=== PATIENT | male | born 1995 | race Caucasian/White ===

== ENCOUNTER 2024-10-27 11:35 | Day surgery (SDC) | payer SELFPAY ==
--- NOTE | 2024-10-26 16:09 | W.PREOPHP ---
Assessment and Plan Assessment and plan (1) Left inguinal hernia: Status: Acute Assessment and plan: We reviewed the plan for a open left inguinal hernia repair with mesh, and Collin had the chance to ask any other questions. There have been no other major changes, and we can proceed with left-sided open inguinal hernia repair with mesh as planned. History of Present Illness History of Present Illness Chief Complaint: left groin pain Narrative: Collin is here for a left inguinal hernia. Symptoms of it first were noticed in the spring of last year. He was doing some physical labor and he noticed a sensation of a pulled muscle in the left side of his groin. At first he did not think much of it, but the pain persisted for a few weeks, and not long thereafter he noticed a bulge in the area. The bulge tends to come and go. He denies any obstructive symptoms. He was actually seen in this office in April 2024 anticipating surgical repair, but due to some health insurance issues, they have had to reschedule. In the interim, there is not been much different in terms of his symptoms, although he does think that the hernia itself may be a little bit larger than before. PFSH All Active Problems Vapes nicotine containing substance (Acute) Left inguinal hernia (Acute) Medical History Exercise-induced asthma Surgical History Hx of wisdom tooth extraction Social History Smoking/Tobacco Use Status: Current every day Tobacco Type: e-cigarettes Smoking risk assessment performed?: Yes Alcohol Intake: never Drug use: Daily Substance use type: marijuana Details: vaping cannabis frequently, daily. Estimates about 5 joints worth a day. Housing: house Do you feel safe at home: Yes Do you feel safe in your relationship?: Yes Meds Allergies and Home Medications Allergies Allergy/AdvReac Type Severity Reaction Status Date / Time No Known Allergies Allergy Verified 10/23/24 14:51 Home Medications ?Medication ?Instructions ?Recorded ?Confirmed ?Type levalbuterol tartrate 45 2 puff inhalation Q4H PRN ##1 10/16/12 10/27/24 History mcg/actuation aerosol inhaler (Xopenex HFA) Exam Const General: cooperative, healthy appearing and not in acute distress Neck Neck: normal visual inspection, no lymphadenopathy and supple Thyroid: thyroid normal Resp Effort & Inspection: normal respiratory effort Auscultation: clear to auscultation bilaterally Cardio Jugular venous pressure: no JVD Rate: regular rate Rhythm: regular rhythm Heart Sounds: S1 normal and S2 normal GI Inspection: normal to inspection Palpation: soft, no guarding, hernia (Reducible left inguinal) and nontender Percussion: normal to percussion Auscultation: normal bowel sounds Neuro General: patient alert, patient awake and patient oriented x3 Psych Appearance: grossly normal
--- NOTE | 2024-10-26 16:28 | W.PM.OP ---
Operative Note Operative Note PRE-OP DIAGNOSIS: Left inguinal hernia POST-OP DIAGNOSIS: other PROCEDURE: Open left-sided inguinal hernia repair with mesh SURGEON: Noam Marquez VETERINARY BACTERIOLOGIST: Faye Rush ANESTHESIA TYPE: Local By Surgeon, General LMA/ETT and Other (Ultrasound guided left-sided inguinal tap block) Refer to Anesthesia Record ESTIMATED BLOOD LOSS: 25 PATHOLOGY: none sent COMPLICATIONS: None Patient was transported to: PACU Patient's condition: stable Implants: Bard PerFix light plug and patch Indications: Collin is a 29-year-old male with a painful left-sided inguinal hernia Findings: Left-sided indirect inguinal hernia Procedure Description: I met with Collin in the preoperative area, we discussed the plan for surgery. He did not have any new questions. He confirmed the left side was the correct side. We then moved back to the operating room, and he was assisted onto the OR table. Care was taken to ensure that he was padded and supported appropriately. General endotracheal anesthesia was initiated, and the left inguinal region was blocked by the anesthesia team. The surgical site was then prepped and draped in the usual fashion. I began by making an oblique incision over the left inguinal region. I dissected down through the skin to the deep fascia. Next, I incised the fascia along the length of the inguinal canal to the external ring. I then carefully identified the ilioinguinal nerve and sharply divided. Once this was complete, I bluntly dissected the shelving edge of the inguinal ligament down towards the pubic tubercle. Here, I encircled all cord structures with a Sha drain. Next, I began dissecting the specific cord structures. Great care was taken to spare the vas deferens and the blood supply to the testicle. Next, I isolated the hernia sac from the other inguinal structures. I reduced it back to its normal anatomic position. This was an indirect inguinal hernia that was easily reducible. I then used a large mesh plug to obliterate the defect at the internal ring. I fixed in place with interrupted Prolene stitches. Next, I buttressed the posterior floor of the inguinal canal with a large mesh patch. It was tailored to fit. I started by fixing it to the pubic tubercle. Next, I used Prolene sutures to affix it to the shelving edge of the inguinal ligament and the conjoined tendon. Laterally I tacked it to the internal oblique fascia and reconstructed an internal ring without any strain on the cord structures. Once this was complete, I irrigated the surgical field. It appeared hemostatic. I then closed the anterior portion of the fascia to reconstruct the front wall of the inguinal canal. I did this with interrupted Vicryl stitches. Once again, I irrigated the surgical field and inspected for hemostasis. Finally, I approximated the superficial fascia and the deep layers of the skin with absorbable suture. Skin was closed with running subcuticular stitches. Bandages were applied, the patient was awakened and transferred to the recovery unit. Date of Procedure: 10/27/24
--- NOTE | 2024-10-26 16:29 | W.PM.DSUDISC ---
Date of service: 10/27/24 Discharge Plan Disposition Patient Disposition: Home Condition: Good Discharge Details Reason For Visit: Left inguinal hernia repair Attending Provider: Noam Marquez Primary Care Provider: None,None Home Meds and New Rx's Prescriptions: New tramadol 50 mg tablet 50 mg PO Q8H PRNQty: 12 0RF Rx Instructions: Take 1 tablet by mouth up to every 8 hours if needed for more severe pain Continued levalbuterol tartrate [Xopenex HFA] 15 GM HFA aerosol inhaler 2 puff Inhalation Q4H PRN Qty: 1 Rx Instructions: always use with spacer Discharge Instructions Instructions: Groin Hernia Repair, Open Surgery Additional Instructions: Collin, it was very nice seeing you today, and I hope you make a quick and uneventful recovery from the operation. Things went very smoothly, we were able to easily identify the hernia, and reduce it back in place. I repaired the defect just like we spoke about beforehand using permanent mesh material that should provide a durable repair. Expect to get some bruising over the next few days. That is extremely common and nothing to worry about. You may also notice some increasing pain as some of the nerve block wears off. Alternating Tylenol and ibuprofen, and supplementing this with the prescription if needed should help with the transition. Try to get up and move around a little bit over the next few days. Avoid any heavy lifting, and when you are resting, try to keep your pelvis elevated to help reduce swelling. Ice packs are also very useful for this. If you need anything at all, please do not hesitate to call, otherwise we look forward to seeing you in the office on the . 1. Resume all of your regular medications. 2. Use ice packs over the incision as needed for pain and swelling 3. Alternate [id number] Tylenol and ibuprofen every 6 hours for the first 2 days, then use as needed. Use the prescription for [] if needed for more severe pain 4. Leave bandage in place for 24 hours, then remove. 5. Shower with warm soapy water. Pat dry. Use a bandaid if needed to protect your clothing. 6. No soaking or tub baths until I see you in the office. 7. No heavy lifting until I see you in the office. 8. Call the office (or go directly to the emergency room after hours) if you notice any of the following: Develop chills (warm to touch), or if you have a thermometer and your temperature is above 101 Difficulty breathing or difficultly swallowing Persistent vomiting Any bleeding ? exceeding one tablespoon 9. Call your physician if the site where your intravenous was started becomes red, swollen, painful, and warm to touch. Referrals: Noam Marquez MD [ [facility] STAFF PHYSICIAN] - (November 11 at 9:30 AM) Activity:: No heavy lifting Remove Dressings/Wound Care:: 24 hours Shower/Bathe:: 24 hours Diet:: As Tolerated Discharge Orders Discharge Orders: Discharge Order (Routine); Ordered 10/26/24 Ordered By: Noam Marquez DS: Diagnosis Discharge Diagnosis (1) Left inguinal hernia: Status: Acute Asessment and Plan: Postoperative outpatient follow-up
[2024-10-27] VITALS (32 sets, daily range): BP systolic 99–141; BP diastolic 42–99; PULSE 60–92; RESP 12–22; TEMP 36.3–36.8; O2SAT 96–99; BMI 26.4
[2024-10-27] MEDS: Lactated Ringers 1,000 ML 80 ML IV ×2 (12:10→14:40)
[2024-10-27] MEDS: Acetaminophen 500 MG TAB 1000 MG PO (12:10)
[2024-10-27] MEDS: Celecoxib 200 MG CAP PO (12:10)
[2024-10-27] MEDS: Gabapentin 300 MG CAP 600 MG PO (12:10)
[2024-10-27] MEDS: ceFAZolin 2 GM/50 ML BAG IVPB (12:10)
--- NOTE | 2024-10-27 12:22 | W.ANESPRE ---
General Info Date of Service Date Performed: 10/27/24 Height: 6 ft Weight: 88.6 kg Body Mass Index (BMI): 26.4 Surgical Procedure: Operation Date: 10/27/24 12:55 Proposed Procedure Side Surgeon p Herniorrhaphy Inguinal w/Mesh Left Noam Marquez MD Meds Allergies and Home Medications Allergies Allergy/AdvReac Type Severity Reaction Status Date / Time No Known Allergies Allergy Verified 10/23/24 14:51 Home Medication ?Medication ?Instructions ?Recorded levalbuterol tartrate 45 2 puff inhalation Q4H PRN ##1 10/16/12 mcg/actuation aerosol inhaler (Xopenex HFA) Current Visit Medications: Current Medications Generic Name Dose Route Start Last Admin Trade Name Freq PRN Reason Stop Dose Admin Acetaminophen 1,000 mg 10/27/24 06:00 10/27/24 12:10 Acetaminophen 500 Mg Tab PO 10/27/24 23:59 1,000 mg PREOP JAYJAY Administration Celecoxib 200 mg 10/27/24 06:00 10/27/24 12:10 Celecoxib 200 Mg Cap PO 10/27/24 23:59 200 mg PREOP JAYJAY Administration Gabapentin 600 mg 10/27/24 06:00 10/27/24 12:10 Gabapentin 300 Mg Cap PO 10/27/24 23:59 600 mg PREOP JAYJAY Administration Hydromorphone HCl 0.2 mg 10/26/24 16:31 Hydromorphone 2 Mg/Ml Syr IVP 11/25/24 16:30 Q1H PRN PRN Ringer's Solution 1,000 mls @ 80 mls/hr 10/27/24 06:00 10/27/24 12:10 IV 10/27/24 23:59 80 mls/hr INFUSION JAYJAY Administration Cefazolin Sodium/Dextrose 2 gm in 50 mls @ 100 mls/hr 10/27/24 06:00 Ancef Duplex IVPB 10/27/24 23:59 PREOP JAYJAY IV Miscellaneous Supplies 1 each 10/27/24 06:00 Iv Access IV 10/27/24 23:59 DIRECTED JAYJAY Sodium Chloride 0 ml 10/27/24 06:00 Normal Saline Flush 10 Ml Syr IV 10/27/24 23:59 PRN PRN Sodium Chloride 0 ml 10/27/24 06:00 Normal Saline 10 Ml Vial IJ 10/27/24 23:59 DIRECTED PRN Sterile Water 0 ml 10/27/24 06:00 Water,Injection,Sterile 10 Ml Vial IJ 10/27/24 23:59 DIRECTED PRN Tramadol HCl 50 mg 10/26/24 16:31 Tramadol 50 Mg Tab PO 11/25/24 16:30 Q6H PRN PRN Pain PFSH Active Problems Active Problems: Problem Status Onset Code Vapes nicotine containing substance Acute Z72.0 Left inguinal hernia Acute K40.90 Medical History Medical History Exercise-induced asthma Surgical History Surgical History Hx of wisdom tooth extraction Tobacco Smoking/Tobacco Use Status: Current every day Tobacco Type: e-cigarettes Passive smoking exposure: No Alcohol Alcohol Intake: never Substance Use Substance use: Daily Substance use type: marijuana Details: vaping cannabis frequently, daily. Estimates about 5 joints worth a day. Vital Signs and Lab Results Vital Signs Most Recent Vital Signs in EMR: Most Recent Vital Signs Temp Pulse Resp BP Pulse Ox 36.8 C 92 H 18 141/78 H 98 10/27/24 11:48 10/27/24 11:48 10/27/24 11:48 10/27/24 11:48 10/27/24 11:48 Lab Results Blood Type / Crossmatch: No Data to Display Complete Blood Count: No Data to Display Complete Metabolic Panel: No Data to Display Liver Function Panel: No Data to Display Coagulation Panel: No Data to Display Cardiac Panel: No Data to Display Arterial Blood Gas: No Data to Display Venous Blood Gas: No Data to Display Pancreas Panel: No Data to Display Thyroid Panel: No Data to Display Infectious Disease: No Data to Display Blood Cultures: No Data to Display Toxicology Panel: No Data to Display Anesthesia Assessment and Plan Anesthesia History Personal History: No History of Anesthesia Complications Family History: No Family History of Anesthesia Complications Exercise Tolerance Exercise Tolerance: Metabolic Equivalents>4 Pertinent Negatives Pertinent Negatives: No Symptoms of GERD, No Major Cardiovascular Symptoms or Complaints and No Major Pulmonary Symptoms or Complaints Cardiac & Pulmonary Exam Cardiac Exam: Normal S1/S2 Heart Sounds Pulmonary Exam: Clear Bilateral Breath Sounds Implantable Cardiac Device Does patient have a Pacemaker or an ICD?: No Airway Exam Known Difficult Airway: No Mallampati Class: 2 Mouth Opening: Normal (> 3cm) Thyromental Distance: Greater than 3 cm Neck Range of Motion: Full ROM Neck Circumference: Normal Teeth Condition: Normal Dentition (broken tooth on right lower rear tooth) ASA Classification ASA Score: ASA 2 Emergency Case?: No NPO Status NPO Status: NPO Clears >2 hours, Solids >8 hours Anesthesia Plan Resuscitation Status: Full Code Anesthesia Technique: General Anesthesia Airway Planned: LMA Pain Management: Surgeon and patient request nerve block Monitors Used: Standard Monitors and SedLine
--- NOTE | 2024-10-27 14:54 | W.ANESNERVE ---
Nerve Block Single Injection Procedure Date and Time Date Performed: 10/27/24 Procedure Start: 13:28 Location Where Procedure Performed Procedure Location: Operating Room Procedure Stop: 13:34 Reason Performed: Postoperative Analgesia Requesting Provider: Noam Marquez Timeout Performed Timeout Performed: Yes Monitoring Used ECG, Blood Pressure, SpO2, ETCO2 and See EMR for corresponding vital signs Sterility Sterility: Hand Hygiene, Surgical Cap, Surgical Mask, Sterile Gloves and Chlorhexidine Sedation Given During Procedure Sedation Given (Indicate Dose Given): No Sedation given Patient Mental Status Patient Mental Status: Performed under general anesthesia Nerve Block 1st Nerve Block: Laterality: Left Block Type: TAP Unilateral Ultrasound Image Saved?: Yes Needle / Catheter Used: 80mm SonoPlex II Local Anesthetic Bolus (Indicate Dose Given): Lidocaine used for local infiltration of skin, Injected in 3-5ml increments after negative blood aspiration, Bupivacaine 0.25% Dose:: 10mL and Exparel Dose:: 10mL Additives (Indicate Dose Given): None Ultrasound: Sterile probe cover and gel used Nerve Stimulator: Not Used Paresthesia: None Procedure Tolerated: No Complications Procedure Outcome: Successful Performed By: Erica Caldeorn
[2024-10-27] MEDS: Bupivacaine 0.25% Pres-Free W/EPI 30 ML VIAL (15:08)
[2024-10-27] MEDS: HYDROmorphone 2 MG/ML SYR IVP ×3 (16:27→16:44)
[2024-10-27] MEDS: traMADol 50 MG TAB PO (17:01)
--- NOTE | 2024-10-27 17:55 | W.ANESPOSTOP ---
Postoperative Evaluation Date, Time and Location Date Performed: 10/27/24 Time Performed: 17:05 Patient Location: Day Surgery Unit Vital Signs Most Recent Imported Vital Signs: Most Recent Vital Signs Temp Pulse Resp BP Pulse Ox 36.3 C L 60 16 135/99 H 99 10/27/24 17:20 10/27/24 17:20 10/27/24 17:20 10/27/24 17:20 10/27/24 17:20 Pain Score Most Recent Pain Score: Most Recent Pain Score Pain Level 4 10/27/24 17:20 Assessment Mental Status: Awake (Alert & Oriented to Patient Baseline) Airway and Respiratory Function: Patent airway with normal (patient baseline) respiratory exam Cardiovascular Function: Hemodynamically Stable Hydration Status: Adequately Hydrated Nausea & Vomiting: No Nausea or Vomiting Pain: Pain is tolerable per patient Peripheral Nerve Block: Regional nerve block not resolved at time of post operative discharge
== END 2024-10-27 18:19 | disposition home or self-care (01) ==
LOC: SUR 11:36
PROVIDERS: Visit Provider Surgery
PROC: (CPT 49505; principal; 2024-10-27 12:45)
DX: K40.90 Unilateral inguinal hernia, without obstruction or gangrene, not specified as recurrent (principal)
CPT/HCPCS: 49505; 64486; C1781; J0665; J0666; J0690; J1100; J1171; J2003; J2250; J2405; J2704